=== PATIENT | male | born 1990 ===

== ENCOUNTER 2018-02-25 23:31 | Emergency (ER) | payer SELFPAY ==
[2018-02-25 23:43] VITALS: BP 124/82; PULSE 80; RESP 18; TEMP 98.2; O2SAT 100
--- NOTE | 2018-02-26 00:10 | ED PDOC ---
HPI: Headache Time Seen by Provider: 02/25/18 23:45 Chief Complaint (Nursing): Headache History Per: Patient History/Exam Limitations: no limitations Onset/Duration Of Symptoms: Hrs, Days Current Symptoms Are (Timing): Still Present Additional Complaint(s): No PMHx presenting with fever, headache, rash. States it started mid-week last week and was seen in outside ER where he had CT, labwork which was positive for fluid in sinuses, was prescribed sumatriptan but patient states that only excedrin helps but temporarily. States the pain is worse on the R side of his face and noticed a rash develop Monday afternoon. States he has subjective fevers, chills at home but did not take temperature. Notes increased stress and decreased sleeping because of work. PMD: In [place] Past Medical History Reviewed: Historical Data, Nursing Documentation, Vital Signs Vital Signs: Last Vital Signs Temp 98.2 F 02/25/18 23:41 Pulse 80 02/25/18 23:41 Resp 18 02/25/18 23:41 BP 124/82 02/25/18 23:41 Pulse Ox 100 02/25/18 23:41 - Medical History PMH: No Chronic Diseases - Family History Family History: States: Unknown Family Hx - Home Medications Home Medications: Ambulatory Orders Medication Instructions Recorded Gabapentin 300 mg PO DAILY #10 capsule 02/26/18 Prednisone [Deltasone] 40 mg PO DAILY 3 Days #6 tablet 02/26/18 valACYclovir [Valtrex] 1,000 mg PO Q8 7 Days #21 tab 02/26/18 - Allergies Allergies/Adverse Reactions: Allergies Allergy/AdvReac Type Severity Reaction Status Date / Time No Known Allergies Allergy Verified 02/25/18 23:40 Review of Systems ROS Statement: Except As Marked, All Systems Reviewed And Found Negative Constitutional: Positive for: Fever, Chills Skin: Positive for: Rash, Lesions Physical Exam - Reviewed Nursing Documentation Reviewed: Yes Vital Signs Reviewed: Yes - Physical Exam Appears: Positive for: Well, Non-toxic, No Acute Distress Head Exam: Positive for: ATRAUMATIC, NORMAL INSPECTION, NORMOCEPHALIC Skin: Positive for: Normal Color, Rash (Dermatomal vesicular rash to R upper face, +Carlson's sign) Eye Exam: Positive for: EOMI, Normal appearance, PERRL ENT: Positive for: Normal ENT Inspection Neck: Positive for: Normal, Painless ROM Cardiovascular/Chest: Positive for: Regular Rate, Rhythm Respiratory: Positive for: CNT, Normal Breath Sounds Gastrointestinal/Abdominal: Positive for: Normal Exam, Soft Back: Positive for: Normal Inspection Extremity: Positive for: Normal ROM Neurologic/Psych: Positive for: Alert, Oriented - ECG O2 Sat by Pulse Oximetry: 100 Pulse Ox Interpretation: Normal Medical Decision Making Medical Decision Making: Patient presenting with rash and headache --Patient's rash indicative of herpes zoster --Will start patient on anti-viral, prednisone, and gabapentin --STRONGLY encouraged followup with Dr. Diaz, refractory furnace designer, tomorrow for eye check for possible herpes zoster opthalmicus, although no evidence of it currently --Patient with stable vitals, well appearance upon discharge --Advised addictive potential of gabapentin and strongly advised patient only to use it as absolutely necessary and for severe pain only Disposition - Clinical Impression Clinical Impression: Herpes zoster - Patient ED Disposition Is Patient to be Admitted: No - Disposition Referrals: Jung Diaz MD [Staff Provider] - Disposition: Routine/Home Disposition Time: 00:15 Condition: GOOD Additional Instructions: You MUST followup with Dr. Diaz tomorrow to get your left eye checked. Prescriptions: Gabapentin 300 mg PO DAILY #10 capsule Prednisone [Deltasone] 40 mg PO DAILY 3 Days #6 tablet valACYclovir [Valtrex] 1,000 mg PO Q8 7 Days #21 tab Instructions: Shingles
== END 2018-02-26 00:30 | disposition home or self-care (01) ==
LOC: H.ER 23:31
DX: B02.9 Zoster without complications (principal)